=== PATIENT | female | born 1960 | race African-American/Black ===

== ENCOUNTER 2020-08-27 01:51 | Emergency (ER) | payer MEDICARE, OTHER ==
[~2020-08-27] VITALS: Ht 167.6 cm; Wt 61.6 kg
[~2020-08-27 01:51] MED LIST: AMLO2.5T2; ASPI-785; GABA-290; HYDR-1348; INSASP; NAPR-1176; SIMV-43; [UNRECOGNIZED DRUG - CODE]
[2020-08-27 01:54] VITALS: BP 160/102
[2020-08-27 03:40] LABS: HEMATOCRIT 39.1 % (36.0-48.0); HEMOGLOBIN 12.7 g/dL (12.0-16.0); MEAN CORPUSCULAR HEMOGLOBIN 30.4 pg (28.0-32.0); MEAN CORPUSCULAR VOLUME 93.3 fL (81.0-99.0); PLATELET 354 x1000/uL (130-400); RED BLOOD CELL COUNT 4.19 mill/uL (4.2-5.4); RED CELL DISTRIBUTION WIDTH 11.9 % (11.6-14.6)
[2020-08-27 03:46] LABS: CHLORIDE 102 mEq/L (98-107)
[2020-08-27 03:51] LABS: BETA HYDROXYBUTYRATE 0.1 mMol/L (0.0-0.3)
[2020-08-27] MEDS ORDERED: INSULIN LISPRO 100 UNITS/ML SUBCUT NR (05:00)
== END 2020-08-27 05:15 | disposition home or self-care (01) ==
LOC: ER 01:51
DX: E11.65 Type 2 diabetes mellitus with hyperglycemia (principal); R60.0 Localized edema; Z59.0 Homelessness; Z91.14 Patient's other noncompliance with medication regimen; I10 Essential (primary) hypertension; Z90.710 Acquired absence of both cervix and uterus; Z98.51 Tubal ligation status; Z98.890 Other specified postprocedural states; Z79.82 Long term (current) use of aspirin; Z79.899 Other long term (current) drug therapy
CPT/HCPCS: 36415; 80053; 82010; 82962; 83036; 83880; 85027; 93005; 96372; 99284; J1815; J7030; 99283

== ENCOUNTER 2020-08-27 07:52 | Emergency (ER) | payer MEDICARE, OTHER ==
[~2020-08-27] VITALS: Ht 167.6 cm; Wt 59.0 kg
[2020-08-27 07:57] VITALS: BP 169/82
[2020-08-27] MEDS ORDERED: INSULIN LISPRO 100 UNITS/ML SUBCUT ONE (08:30)
[2020-08-27] MEDS ORDERED: SODIUM CHLORIDE 0.9% 1,000 ML IV ONE (08:30)
== END 2020-08-27 09:06 | disposition left against medical advice (07) ==
LOC: ER 08:20
DX: E11.65 Type 2 diabetes mellitus with hyperglycemia (principal); I10 Essential (primary) hypertension; Z90.710 Acquired absence of both cervix and uterus; Z98.51 Tubal ligation status; Z98.890 Other specified postprocedural states; Z90.49 Acquired absence of other specified parts of digestive tract; Z79.82 Long term (current) use of aspirin; Z79.899 Other long term (current) drug therapy
CPT/HCPCS: 82962; 96372; 99283; J1815; J7030

== ENCOUNTER 2020-08-27 16:56 | Emergency (ER) | payer MEDICARE, OTHER ==
[~2020-08-27] VITALS: Ht 172.7 cm; Wt 65.0 kg
[2020-08-27 16:58] VITALS: BP 179/111
[2020-08-27] MEDS ORDERED: ACETAMINOPHEN 325MG TABLET PO ONE (17:15)
== END 2020-08-27 18:03 | disposition left against medical advice (07) ==
LOC: ER 16:56
DX: M25.572 Pain in left ankle and joints of left foot (principal); M25.571 Pain in right ankle and joints of right foot; Z53.21 Procedure and treatment not carried out due to patient leaving prior to being seen by health care provider

== ENCOUNTER 2020-08-29 00:30 | Emergency (ER) | payer MEDICARE, OTHER ==
[~2020-08-29] VITALS: Ht 167.6 cm; Wt 66.0 kg
[2020-08-29 04:45] VITALS: BP 142/88
== END 2020-08-29 04:40 | disposition home or self-care (01) ==
LOC: ER 00:30
DX: Z59.0 Homelessness (principal); F11.10 Opioid abuse, uncomplicated; E11.9 Type 2 diabetes mellitus without complications; I10 Essential (primary) hypertension; Z79.82 Long term (current) use of aspirin; Z79.899 Other long term (current) drug therapy; Z98.51 Tubal ligation status; Z98.890 Other specified postprocedural states; Z90.49 Acquired absence of other specified parts of digestive tract
CPT/HCPCS: 93005; 99283

== ENCOUNTER 2022-12-24 19:18 | Emergency (ER) | payer OTHER ==
[~2022-12-24] VITALS: Ht 167.6 cm; Wt 62.0 kg
[2022-12-24 20:42] VITALS: BP 131/70; PULSE 69; RESP 14; TEMP 98.7; O2SAT 95
[2022-12-24] MEDS ORDERED: HYDROCODONE/ACETAMINOPHEN 7.5/325MG TABLET PO ONE (23:00)
== END 2022-12-24 23:30 | disposition home or self-care (01) ==
LOC: ER 19:18
DX: G89.4 Chronic pain syndrome (principal); I50.9 Heart failure, unspecified; E11.9 Type 2 diabetes mellitus without complications
CPT/HCPCS: 99283; Z7610

== ENCOUNTER 2022-12-29 01:40 | Emergency (ER) | payer OTHER ==
[~2022-12-29] VITALS: Ht 167.6 cm; Wt 57.0 kg
[2022-12-29 01:45] VITALS: O2SAT 99
[2022-12-29] MEDS ORDERED: PIPERACILLIN/TAZOBACTAM 3.375GM/50ML PREMIX IV ONE (02:00)
[2022-12-29] MEDS ORDERED: MORPHINE SULFATE 4 MG/ML CPJ (NOT FOR IM USE) IV ONE ×2 (02:00→04:15)
[2022-12-29] MEDS ORDERED: ONDANSETRON HCL 4MG/2ML INJ IV ONE (02:00)
[2022-12-29] MEDS ORDERED: VANCOMYCIN 1G PREMIX 200 ML IV SCH (02:00)
[2022-12-29] MEDS ORDERED: PIPERACILLIN/TAZ 3.375G PREMIX 50 ML IV NR (02:15)
[2022-12-29 03:30] LABS: HEMATOCRIT. 34.5 % (36.0-48.0); HEMOGLOBIN. 11.6 g/dL (12.0-16.0); MEAN CORPUSCULAR HEMOGLOBIN 31.2 pg (28.0-32.0); MEAN CORPUSCULAR HGB CONC 33.5 g/dL (31.0-37.0); MEAN PLATELET VOLUME 9.3 fl (7.4-10.4); PLATELET 305 x1000/uL (130-400); RED BLOOD CELL COUNT 3.71 mill/uL (4.2-5.4); RED CELL DISTRIBUTION WIDTH 12.5 % (11.6-14.6); WHITE BLOOD COUNT 17.3 x1000/uL (4.5-11.0)
[2022-12-29 03:34] LABS: CHLORIDE 103 mEq/L (98-107); INDEX HEMOLYSI 3 (1-3); INDEX ICTERIC 1 (1-4); INDEX LIPEMIC 1 (1-3); POTASSIUM 4.1 mEq/L (3.5-5.1); SODIUM 133 mEq/L (136-145)
[2022-12-29 03:35] LABS: DIFFERENTIAL COMMENT 1
[2022-12-29 03:45] LABS: ALANINE AMINOTRANSFERASE 17 IU/L (13-61); ALBUMIN 2.2 g/dL (3.4-5.0); ASPARTATE AMINOTRANSFERASE 18 IU/L (15-37); BILIRUBIN TOTAL 0.7 mg/dL (0.1-1.0); CALCIUM 9.2 mg/dL (8.5-10.1); CARBON DIOXIDE 24 mEq/L (21-32); CREATINE KINASE 59 IU/L (26-192); CREATININE 0.9 mg/dL (0.6-1.3); ETHANOL BLOOD < 10 mg/dL (-10); GLUCOSE 208 mg/dL (70-105); NT PRO B-TYPE NATRIURETIC PEP 1764 pg/mL (5-125); PROTEIN TOTAL 7.7 g/dL (6.0-8.3); UREA NITROGEN BLOOD 31 mg/dL (7-21)
[2022-12-29 04:10] LABS: TROPONIN I HIGH SENSITIVITY 89 ng/L (<54)
[2022-12-29] MEDS ORDERED: ASPIRIN 325MG EC TABLET PO NR (05:00)
[2022-12-29 05:12] LABS: PROTHROMBIN TIME 10.4 sec (9.6-11.0)
[2022-12-29 06:25] LABS: CLARITY URINE CLOUDY (CLEAR); COLOR URINE YELLOW (YELLOW); GLUCOSE URINE 2+ (NEGATIVE); KETONES URINE TRACE (NEGATIVE); LEUKOCYTE ESTERASE URINE NEGATIVE (NEGATIVE); NITRITE URINE NEGATIVE (NEGATIVE); OCCULT BLOOD URINE 2+ (NEGATIVE); PH URINE 5.5 (4.5-8.0); PROTEIN URINE 3+ (NEGATIVE); SPECIFIC GRAVITY URINE 1.022 (1.005-1.030)
[2022-12-29 06:45] LABS: *AMPHETAMINES SCREEN URINE NEGATIVE (NEGATIVE); *BARBITURATES SCREEN URINE NEGATIVE (NEGATIVE); *BENZODIAZEPINES SCREEN URINE NEGATIVE (NEGATIVE); *COCAINE SCREEN URINE NEGATIVE (NEGATIVE); CANNABINOID URINE SCREEN NEGATIVE (NEGATIVE); ECSTASY MDMA SCREEN URINE NEGATIVE (NEGATIVE); METHADONE URINE SCREEN NEGATIVE (NEGATIVE); OPIATES URINE SCREEN PRESUMTIVE POSITIVE (NEGATIVE); PHENCYCLIDINE URINE SCREEN NEGATIVE (NEGATIVE)
[2022-12-29] MEDS ORDERED: HYDROMORPHONE HCL/PF 2MG/ML CPJ IV ONE (07:30)
[2022-12-29 08:19] LABS: SQUAMOUS EPITHELIAL CELL URINE FEW /lpf (RARE/1+)
[2022-12-29 08:21] LABS: WBC URINE 0-2 /hpf (0-2)
[2022-12-29 08:22] LABS: BACTERIA URINE 1+
[2022-12-29 08:45] LABS: PLATELET ESTIMATE NORMAL
[2022-12-29 11:40] VITALS: BP 121/65; PULSE 87; RESP 13; TEMP 98.1
== END 2022-12-29 12:11 | disposition left against medical advice (07) ==
LOC: ER 01:42 → EDBEDREQ 04:16 → EDBEDREQTM 04:16 → EDBEDREQSVC 04:16 → MICUSO 04:50 → UNDOADMIN 04:50 → EDBEDREQTM 04:58 → EDBEDREQ 04:58 → UNDODISIN 12:09
DX: A41.9 Sepsis, unspecified organism (principal); L03.115 Cellulitis of right lower limb; Z53.29 Procedure and treatment not carried out because of patient's decision for other reasons; I50.9 Heart failure, unspecified; E11.9 Type 2 diabetes mellitus without complications; Z90.49 Acquired absence of other specified parts of digestive tract
CPT/HCPCS: 80053; 80305; 81003; 80320; 82550; 83880; 83605; 85025; 85610; 87086; 84484; 36415; 84145; 71045; 73590; 73630; 93970; 96374; 96375; 96376; 99291; J2405; J2543; J3370; J1170; J2270; G0480

== ENCOUNTER 2023-05-07 19:28 | Inpatient (IN) | payer MEDICARE, OTHER ==
[~2023-05-07] VITALS: Ht 167.6 cm; Wt 64.4 kg
[2023-05-07] MEDS ORDERED: METHYLPREDNISOLONE SOD SUCC 125MG/2ML (ACT-O-VIAL) IV STA (20:10)
[2023-05-07] MEDS ORDERED: IPRATROPIUM BROMIDE (0.02%) 0.5MG/2.5ML NEB HHN STA (20:10)
[2023-05-07] MEDS ORDERED: MAGNESIUM 2 G PREMIX 50 ML IV ONE (20:15)
[2023-05-07] MEDS ORDERED: ALBUTEROL (0.083%) 2.5MG/3ML NEB HHN SCH (20:30)
[2023-05-07 21:09] LABS: BASOPHILS % 0.5 % (0.0-2.0); EOSINOPHILS % 1.3 % (0.0-5.0); HEMATOCRIT. 40.4 % (36.0-48.0); HEMOGLOBIN. 12.7 g/dL (12.0-16.0); LYMPHOCYTES % 40.8 % (20.0-50.0); MEAN CORPUSCULAR HEMOGLOBIN 29.4 pg (28.0-32.0); MEAN CORPUSCULAR HGB CONC 31.3 g/dL (31.0-37.0); MEAN CORPUSCULAR VOLUME 93.9 fL (81.0-99.0); NEUTROPHILS % 46.4 % (40.0-76.0); PLATELET 238 x1000/uL (130-400); RED BLOOD CELL COUNT 4.31 mill/uL (4.2-5.4); RED CELL DISTRIBUTION WIDTH 12.7 % (11.6-14.6); WHITE BLOOD COUNT 6.1 x1000/uL (4.5-11.0)
[2023-05-07 21:26] LABS: ALANINE AMINOTRANSFERASE 8 IU/L (10-49); ALBUMIN 3.4 g/dL (3.2-4.8); ASPARTATE AMINOTRANSFERASE 12 IU/L (<34); BILIRUBIN TOTAL 0.9 mg/dL (0.1-1.0); CALCIUM 9.6 mg/dL (8.7-10.4); CARBON DIOXIDE 26 mEq/L (21-32); CHLORIDE 102 mEq/L (98-107); CREATININE 1.1 mg/dL (0.6-1.0); GLUCOSE 216 mg/dL (70-105); POTASSIUM 3.5 mEq/L (3.5-5.1); PROTEIN TOTAL 5.8 g/dL (6.0-8.3); SODIUM 136 mEq/L (136-145); UREA NITROGEN BLOOD 24 mg/dL (9-23)
[2023-05-07 21:31] LABS: TROPONIN I HIGH SENSITIVITY 118 ng/L (3.0-34)
[2023-05-07 21:47] VITALS: PULSE 85; RESP 18; O2SAT 97
[2023-05-07] MEDS: ALBUTEROL (0.083%) 2.5MG/3ML NEB HHN SCH ×2 (21:47→22:49)
[2023-05-07] MEDS ORDERED: ASPIRIN 325MG EC TABLET PO ONE (22:00)
[2023-05-07 22:49] VITALS: PULSE 88; RESP 16; O2SAT 97
[2023-05-07 23:20] LABS: TROPONIN I HIGH SENSITIVITY 115 ng/L (3.0-34)
[2023-05-07] MEDS ORDERED: ASPIRIN 325MG EC TABLET PO NR (23:45)
[2023-05-07] MEDS ORDERED: ENOXAPARIN 60MG/0.6ML SYR SUBCUT NR (23:45)
[2023-05-08 00:25] VITALS: PULSE 102; RESP 18
[2023-05-08] MEDS: ALBUTEROL (0.083%) 2.5MG/3ML NEB HHN SCH (00:25)
[2023-05-08] MEDS ORDERED: HYDRALAZINE 20MG/ML VIAL IV PRN (00:30)
[2023-05-08] MEDS ORDERED: ZOLPIDEM TARTRATE 5MG TABLET PO PRN (00:30)
[2023-05-08] MEDS ORDERED: DEXTROSE 50% WATER 50ML SYRINGE IV PRN (00:30)
[2023-05-08] MEDS ORDERED: ACETAMINOPHEN 325MG TABLET PO PRN (00:30)
[2023-05-08] MEDS ORDERED: GUAIFENESIN 200MG/10ML SUGAR FREE UDC PO PRN (00:30)
[2023-05-08] MEDS ORDERED: DIPHENHYDRAMINE 50MG/ML VIAL IV PRN (00:30)
[2023-05-08] MEDS ORDERED: ONDANSETRON HCL 4MG/2ML INJ IV PRN (00:30)
[2023-05-08] MEDS ORDERED: CLONIDINE 0.1MG TABLET PO PRN (00:30)
[2023-05-08] MEDS ORDERED: IPRATROPIUM/ALBUTEROL 0.5-3(2.5)MG/3ML NEB HHN PRN (00:30)
[2023-05-08] MEDS ORDERED: MAGNESIUM/ALUMINUM HYDROXIDE/SIMETHICONE 30ML UDC PO PRN (00:30)
[2023-05-08 06:03] LABS: INR 0.9; PROTHROMBIN TIME 10.2 sec (9.6-11.0)
[2023-05-08] MEDS: BLOOD SUGAR DIAGNOSTIC STRIP TEST SCH ×4 (06:51→21:21)
[2023-05-08] MEDS: INSULIN LISPRO 100 UNITS/ML SUBCUT SCH ×4 (06:55→21:28)
[2023-05-08] MEDS: SODIUM CHLORIDE 0.9% INJ 3ML FLUSH IVF SCH ×3 (06:58→21:29)
[2023-05-08 08:00] VITALS: BP_SYST 122; BP_SYST 164; BP_DIAS 68; BP_DIAS 72; PULSE 88; PULSE 97; RESP 18; RESP 19; TEMP 96.6; TEMP 97.9
[2023-05-08] MEDS: POTASSIUM CHLORIDE 20MEQ TABLET SR PO SCH (08:44)
[2023-05-08 09:28] LABS: *AMPHETAMINES SCREEN URINE NEGATIVE (NEGATIVE); *BARBITURATES SCREEN URINE NEGATIVE (NEGATIVE); *BENZODIAZEPINES SCREEN URINE NEGATIVE (NEGATIVE); *COCAINE SCREEN URINE NEGATIVE (NEGATIVE); CANNABINOID URINE SCREEN NEGATIVE (NEGATIVE); ECSTASY MDMA SCREEN URINE NEGATIVE (NEGATIVE); METHADONE URINE SCREEN Neg (NEGATIVE); OPIATES URINE SCREEN NEGATIVE (NEGATIVE); PHENCYCLIDINE URINE SCREEN NEGATIVE (NEGATIVE)
[2023-05-08] MEDS: ASPIRIN 81MG EC TABLET PO SCH (10:31)
[2023-05-08] MEDS: FUROSEMIDE 40MG/4ML VIAL IVP SCH ×2 (10:32→16:43)
[2023-05-08] MEDS ORDERED: ENOXAPARIN 60MG/0.6ML SYR SUBCUT SCH (11:00)
[2023-05-08 12:00] VITALS: BP 116/82; PULSE 94; RESP 18; TEMP 96.7
[2023-05-08 16:00] VITALS: BP 123/77; PULSE 98; RESP 18; TEMP 96.9
[2023-05-08] MEDS: METFORMIN HCL 500MG TABLET PO SCH (16:43)
[2023-05-08 20:00] VITALS: BP 110/69; PULSE 94; RESP 18; TEMP 98.4
[2023-05-08] MEDS: FAMOTIDINE 20MG TABLET PO SCH (21:28)
[2023-05-08] MEDS: ENOXAPARIN 40MG/0.4ML SYR SUBCUT SCH (21:29)
[2023-05-09] VITALS: BP 111/72; PULSE 88; RESP 19; TEMP 98.1
[2023-05-09 04:00] VITALS: BP 129/63; PULSE 86; RESP 19; TEMP 97.9
[2023-05-09] MEDS: FUROSEMIDE 40MG/4ML VIAL IVP SCH ×2 (06:10→17:48)
[2023-05-09] MEDS: BLOOD SUGAR DIAGNOSTIC STRIP TEST SCH ×4 (06:10→20:50)
[2023-05-09] MEDS: SODIUM CHLORIDE 0.9% INJ 3ML FLUSH IVF SCH ×3 (06:10→22:00)
[2023-05-09] MEDS: INSULIN LISPRO 100 UNITS/ML SUBCUT SCH ×4 (06:16→20:50)
[2023-05-09 08:00] VITALS: BP 114/71; PULSE 93; RESP 18; TEMP 97.5
[2023-05-09] MEDS: METFORMIN HCL 500MG TABLET PO SCH ×2 (08:03→17:48)
[2023-05-09] MEDS: ACETAMINOPHEN 325MG TABLET PO PRN (08:04)
[2023-05-09 08:34] LABS: CALCIUM 9.1 mg/dL (8.7-10.4); CARBON DIOXIDE 24 mEq/L (21-32); CHLORIDE 107 mEq/L (98-107); CREATININE 1.1 mg/dL (0.6-1.0); GLUCOSE 143 mg/dL (70-105); PHOSPHORUS 3.4 mg/dL (2.5-4.9); POTASSIUM 4.4 mEq/L (3.5-5.1); SODIUM 137 mEq/L (136-145); UREA NITROGEN BLOOD 25 mg/dL (9-23)
[2023-05-09] MEDS: POTASSIUM CHLORIDE 20MEQ TABLET SR PO SCH (08:52)
[2023-05-09] MEDS: ASPIRIN 81MG EC TABLET PO SCH (08:52)
[2023-05-09] MEDS: AMLODIPINE 2.5MG TABLET PO SCH (08:52)
[2023-05-09 09:00] LABS: TROPONIN I HIGH SENSITIVITY 101 ng/L (3.0-34)
[2023-05-09] MEDS ORDERED: MAGNESIUM 2 G PREMIX 50 ML IV NR (09:45)
[2023-05-09] MEDS ORDERED: CARVEDILOL 3.125 MG TABLET PO ONE (10:15)
[2023-05-09 12:00] VITALS: BP 134/71; PULSE 92; RESP 19; TEMP 97.9
[2023-05-09] MEDS ORDERED: MAGNESIUM OXIDE 400MG TABLET PO NR (12:30)
[2023-05-09] MEDS ORDERED: LOPERAMIDE HCL 2MG CAPSULE PO PRN (12:45)
[2023-05-09 16:00] VITALS: BP 119/72; PULSE 95; RESP 20; TEMP 98.1
[2023-05-09 17:56] LABS: BASOPHILS % 0.7 % (0.0-2.0); HEMATOCRIT. 42.2 % (36.0-48.0); HEMOGLOBIN. 13.5 g/dL (12.0-16.0); MEAN CORPUSCULAR HEMOGLOBIN 29.9 pg (28.0-32.0); MEAN CORPUSCULAR HGB CONC 31.9 g/dL (31.0-37.0); MEAN CORPUSCULAR VOLUME 93.9 fL (81.0-99.0); MEAN PLATELET VOLUME 10.6 fl (7.4-10.4); MONOCYTES % 11.7 % (2.0-8.0); NEUTROPHILS % 52.6 % (40.0-76.0); PLATELET 277 x1000/uL (130-400); RED CELL DISTRIBUTION WIDTH 12.8 % (11.6-14.6); WHITE BLOOD COUNT 5.3 x1000/uL (4.5-11.0)
[2023-05-09] MEDS: LOPERAMIDE HCL 2MG CAPSULE PO PRN (18:30)
[2023-05-09 20:00] VITALS: BP 125/79; PULSE 91; RESP 18; TEMP 98.7
[2023-05-09] MEDS: ENOXAPARIN 40MG/0.4ML SYR SUBCUT SCH (20:43)
[2023-05-09] MEDS: CARVEDILOL 3.125 MG TABLET PO SCH (20:43)
[2023-05-09] MEDS: FAMOTIDINE 20MG TABLET PO SCH (20:43)
[2023-05-10] VITALS: BP 120/78; PULSE 98; RESP 18; TEMP 98.4
[2023-05-10 04:00] VITALS: BP 129/93; PULSE 95; RESP 18; TEMP 97.7
[2023-05-10] MEDS: ACETAMINOPHEN 325MG TABLET PO PRN (05:19)
[2023-05-10] MEDS: LOPERAMIDE HCL 2MG CAPSULE PO PRN (05:20)
[2023-05-10] MEDS: INSULIN LISPRO 100 UNITS/ML SUBCUT SCH ×2 (06:34→13:14)
[2023-05-10] MEDS: BLOOD SUGAR DIAGNOSTIC STRIP TEST SCH ×2 (06:34→12:10)
[2023-05-10] MEDS: FUROSEMIDE 40MG/4ML VIAL IVP SCH (06:35)
[2023-05-10] MEDS: SODIUM CHLORIDE 0.9% INJ 3ML FLUSH IVF SCH ×2 (06:35→16:08)
[2023-05-10 08:00] VITALS: BP 118/76; PULSE 88; RESP 18; TEMP 97.7
[2023-05-10] MEDS: METFORMIN HCL 500MG TABLET PO SCH (08:28)
[2023-05-10] MEDS: ASPIRIN 81MG EC TABLET PO SCH (08:28)
[2023-05-10] MEDS: POTASSIUM CHLORIDE 20MEQ TABLET SR PO SCH (08:29)
[2023-05-10] MEDS: AMLODIPINE 2.5MG TABLET PO SCH (08:29)
[2023-05-10] MEDS: CARVEDILOL 3.125 MG TABLET PO SCH (08:29)
[2023-05-10 12:00] VITALS: BP 110/72; PULSE 87; RESP 18; TEMP 98.8
[2023-05-10 15:22] VITALS: BP 110/72; PULSE 87; TEMP 98.8; O2SAT 99
[2023-05-10 16:19] LABS: BASOPHILS % 0.4 % (0.0-2.0); EOSINOPHILS % 1.1 % (0.0-5.0); HEMATOCRIT. 36.5 % (36.0-48.0); HEMOGLOBIN. 11.7 g/dL (12.0-16.0); LYMPHOCYTES % 45.1 % (20.0-50.0); MEAN CORPUSCULAR HEMOGLOBIN 29.7 pg (28.0-32.0); MEAN CORPUSCULAR HGB CONC 32.2 g/dL (31.0-37.0); MEAN CORPUSCULAR VOLUME 92.3 fL (81.0-99.0); MONOCYTES % 11.5 % (2.0-8.0); NEUTROPHILS % 41.9 % (40.0-76.0); PLATELET 247 x1000/uL (130-400); RED BLOOD CELL COUNT 3.96 mill/uL (4.2-5.4); WHITE BLOOD COUNT 6.6 x1000/uL (4.5-11.0)
[2023-05-10 16:44] LABS: CALCIUM 9.5 mg/dL (8.7-10.4); CARBON DIOXIDE 28 mEq/L (21-32); CHLORIDE 104 mEq/L (98-107); CREATININE 1.1 mg/dL (0.6-1.0); GLUCOSE 122 mg/dL (70-105); POTASSIUM 4.6 mEq/L (3.5-5.1); SODIUM 138 mEq/L (136-145); UREA NITROGEN BLOOD 35 mg/dL (9-23)
[2023-05-10 17:08] LABS: TROPONIN I HIGH SENSITIVITY 82 ng/L (3.0-34)
== END 2023-05-10 16:35 | disposition home or self-care (01) | DRG 291 ==
LOC: ER 19:28 → EDBEDREQ 21:34 → MICUSO 21:47 → EDBEDREQTM 21:52 → EDBEDREQ 21:52 → 8WST 05-08 06:21
PROVIDERS: ADMIT Internal Medicine; ATTEND Internal Medicine
DX: I11.0 Hypertensive heart disease with heart failure (principal); I50.43 Acute on chronic combined systolic (congestive) and diastolic (congestive) heart failure; Z59.00 Homelessness unspecified; E11.9 Type 2 diabetes mellitus without complications; E78.00 Pure hypercholesterolemia, unspecified; E87.6 Hypokalemia; F41.1 Generalized anxiety disorder; I25.10 Atherosclerotic heart disease of native coronary artery without angina pectoris; Z79.4 Long term (current) use of insulin; Z79.82 Long term (current) use of aspirin; Z87.01 Personal history of pneumonia (recurrent); Z90.49 Acquired absence of other specified parts of digestive tract; Z79.84 Long term (current) use of oral hypoglycemic drugs; Z79.899 Other long term (current) drug therapy
CPT/HCPCS: 36415; 71045; 80048; 80053; 80305; 82962; 83036; 83735; 83880; 84100; 84484; 85025; 87804; 93005; 93306; 93970; 94640; 99285; J1200; J1650; J1815; J1940; J2405; J3475